=== PATIENT | female | born 1970 | race Caucasian/White ===

== ENCOUNTER 2016-11-13 07:30 | Emergency (ER) | payer OTHER ==
[2016-11-13] MEDS ORDERED: Ibuprofen TAB* 400 MG PO ONE (07:38)
--- NOTE | 2016-11-13 07:47 | UC ---
Upper Extremity HPI - HPI Summary HPI Summary: fell at the gym this am, LAUREN. - History of Current Complaint Stated Complaint: LEFT WRIST INJURY Time Seen by Provider: 11/13/16 07:35 Hx Obtained From: Patient Hx Last Menstrual Period: q 3 months, 04/2015 Onset/Duration: Sudden Onset, Lasting Hours, Still Present Severity Initially: Moderate Severity Currently: Severe Pain Intensity: 8 Pain Scale Used: 0-10 Numeric Location Of Pain: Is Discrete @ - left wrist Aggravating Factor(s): Movement Alleviating Factor(s): Nothing Associated Signs And Symptoms: Positive: Swelling. Negative: Bruising, Numbness /Tingling Related History: Dominant Hand Right - Risk Factors Non-Orthopedic Risk Factor: Negative DVT Risk Factors: Negative Septic Arthritis Risk Factor: Negative - Allergies/Home Medications Allergies/Adverse Reactions: Allergies Allergy/AdvReac Type Severity Reaction Status Date / Time No Known Allergies Allergy Verified 11/13/16 07:54 Home Medications: Home Medications 3 Month Cycle O C 1 tab PO QPM 11/13/16 [History Confirmed 11/13/16] Ibuprofen TAB* [Motrin TAB* 600 MG] 600 mg PO Q24HR PRN 11/13/16 [History Confirmed 11/13/16] PMH/Surg Hx/FS Hx/Imm Hx Previously Healthy: Yes - Surgical History Surgical History: None - Family History Known Family History: Positive: Hypertension - Social History Alcohol Use: Rare Substance Use Type: None Smoking Status (MU): Never Smoked Tobacco - Immunization History Most Recent Influenza Vaccination: no Review of Systems Constitutional: Negative Skin: Negative Eyes: Negative ENT: Negative Respiratory: Negative Cardiovascular: Negative Gastrointestinal: Negative Genitourinary: Negative Motor: Negative Neurovascular: Negative Musculoskeletal: Arthralgia Neurological: Negative Psychological: Negative All Other Systems Reviewed And Are Negative: Yes Physical Exam Triage Information Reviewed: Yes Appearance: Well-Appearing, Well-Nourished, Pain Distress Vital Signs Reviewed: Yes Eyes: Positive: Conjunctiva Clear ENT: Positive: Normal ENT inspection Neck: Positive: Supple Respiratory: Positive: No respiratory distress Cardiovascular: Positive: RRR, No Murmur, Pulses Normal, Brisk Capillary Refill Musculoskeletal: Positive: ROM Limited @ - left wrist, Other: - swelling, deformity left wrist; radial pulse intact, sensation intact. Neurological: Positive: Alert, Muscle Tone Normal Psychological Exam: Normal Skin Exam: Normal Upper Extremity Course/Dx - Differential Dx/Diagnosis Differential Diagnosis/HQI/PQRI: Contusion, Fracture (Closed), Strain, Sprain Provider Diagnoses: impacted intraarticular left wrist fracture - Physician Notification/Consults Discussed Patient Care With: Dr. Lujan, pt needs surgery.0825. Dr. Carrasco, ED accepts pt.0830. Dr. Asher (ortho), accept pt to ED also. 0840 Instructed by Provider To: MD Will See In ED Discharge - Discharge Plan Condition: Stable Disposition: AGAINST MEDICAL ADVICE Discharge Disposition Comment: pt to go to [facility] by private car, sister driving. Referrals: Malka Evans [Physician Desulfurizer Machine] - Zbigniew Asher MD [Medical Doctor] -
--- NOTE | 2016-11-13 08:01 | RAD ---
INDICATION: Traumatic left wrist fracture with deformity COMPARISON: None TECHNIQUE: AP, lateral, and oblique views were obtained. FINDINGS: There is an impacted, angulated, intra-articular fracture of the distal radius with resultant soft tissue swelling and deformity. The fracture apex is directed towards the volar surface. No other fractures are evident.. IMPRESSION: IMPACTED AND ANGULATED INTRA-ARTICULAR FRACTURE OF THE DISTAL RADIUS
[2016-11-13 08:22] VITALS: BP 125/80
== END 2016-11-13 08:50 | disposition left against medical advice (07) ==
LOC: UCCORT 07:30
DX: S52.572A Other intraarticular fracture of lower end of left radius, initial encounter for closed fracture (principal); W19.XXXA Unspecified fall, initial encounter; Y93.89 Activity, other specified; Y92.39 Other specified sports and athletic area as the place of occurrence of the external cause
CPT/HCPCS: 99213; A9270-GY; G0463

== ENCOUNTER → 2016-11-30 10:35 | Day surgery (SDC) | payer OTHER ==
[~2016-11-30 10:35] MED LIST: Buffered Lidocaine 1% SYRIN* 3 ML/SYR SYRINGE INTRADERM ONE; Bupivacaine 0.25% SDV* 30 ML ONE; Bupivacaine 0.5% W/EPI SDV* 30 ML VIAL ONE; Dexamethasone IV* 4 MG/ML 1 ML (4 MG) ONE; Lidocaine 2% PF* 5 ML VIAL ONE; Metoclopramide IV* 5 MG/ML 2 ML VIAL IV PRN; Midazolam* 1 MG/ML 2 ML VIAL (2 MG) ONE; Ondansetron INJ* 2 MG/ML VIAL ONE; Propofol* 10 MG/ML 20 ML BTL IV PUSH ONE; Scopolamine 1.5 mg* PATCH TRANSDERM PRN; ceFAZolin 2 GM PREMIX(*) 2 GM/50 ML BAG IVPB ONE; fentaNYL* 50 MCG/ML 2 ML VIAL (100 MCG VIAL) ONE
[2016-11-30 16:02] VITALS: BP 117/65
--- NOTE | 2016-12-01 14:14 | OP ---
DATE OF OPERATION: 11/30/16 - [facility] DATE OF : 68 SURGEON: Zbigniew Mondragon MD MANAGER DRUG SAFETY: BRETT Quintanilla ANESTHESIOLOGIST: Dr. Herndon. ANESTHESIA: Axillary block plus general. PRE-OP DIAGNOSIS: Left intra-articular distal radius fracture. POST-OP DIAGNOSIS: Left intra-articular distal radius fracture. OPERATIVE PROCEDURE: Open reduction and internal fixation of the left intra- articular distal radius fracture. INDICATIONS: Tanisha is a patient who I saw last week in the office after she had had attempted closed treatment of the distal radius fracture. She had had a closed reduction and a sugar-tong splint applied about a week and a half prior to me seeing her. The alignment was initially very good. When she came back to a different orthopedic surgeon's office, the splint was inadvertently removed and she felt like the bone shifted. A repeat x-ray after she had been re-splinted showed some loss of the radial inclination and now about 10 or 20 degrees of dorsal tilt, though length still at reasonable. Additionally, we had some trouble obtaining the lateral view. It looks like that there is a couple of tries on the lateral view and to me it looks like she is probably a little malrotated. She and I had a nice conversation in the office. She really wanted surgical fixation and correction. She did not like the bow that had been created in the coronal plane with the loss of radial inclination. She came to my office a day after seeing a different orthopedic surgeon to discuss with me and also because she was having tremendous pain in the new splint and wanted it removed and at a minimum another splint placed. ESTIMATED BLOOD LOSS: 5 mL. COMPLICATIONS: None. FINDINGS: There was an intraarticular split coming up into the ulnar facet. There was an additional split more radially. DESCRIPTION OF PROCEDURE: Tanisha was seen in the preoperative holding area and the correct side and site and procedure were identified. We came back to the operating room where Dr. Herndon did the block and then anesthesia was induced. The arm was then prepped and draped in the usual fashion with an excellent chlorhexidine or Betadine pre-prep. A formal time-out was performed. I began by making a longitudinal incision over the distal aspect of the FCR tendon. Dissection was carried down through the subcutaneous tissue and the sheath was incised. The FCR tendon was retracted ulnarly and then the subsheath was divided longitudinally. Dissection was then carried down bluntly and soft tissue was swept off the pronator quadratus retracting the FPL tendon ulnarly together with the median nerve. The pronator quadratus was then released off the radius and then T'ed back distally preserving the last three or so millimeter of volar wrist capsule. The fracture site was identified. There was quite a bit of soft callus that was starting to form. It was indeed at least at this current time very malrotated with the radial aspect of the distal fragment sitting quite volar. The ulnar aspect was reasonably aligned in the sagittal plane. The step-off there was freed up of soft tissue. The bony edges were visualized. I then mobilized the fragments and performed a closed reduction maneuver and my family services assistant placed a 0.062 K-wire from the radial styloid out through the ulnar cortex of the proximal fragment. This provided adequate provisional stabilization. I checked everything fluoroscopically and then I went ahead and brought in a plate and placed it in what I thought was a nice position, I pinned it with two pins distally and then 1 pin more proximally. I again checked the fluoroscopy and was satisfied with the plate position. I therefore used the nominal guide to place the three most ulnar screws. I then used the variable angle cone guide to place the radial screw. She had quite a narrow radius and even the narrow plate took up the majority of the bone volarly. With the four distal screws in place, I had my family services assistant pull the K-wire and we aligned the proximal plate onto the shaft of the bone just the position that we wanted. I had built in a few more degrees of radial deviation into the plate positioning and so we went ahead and did that and clamped the plate proximally with a lobster claw. I checked fluoroscopy. I liked the plate. The most radial screw was a little malpositioned. I went ahead and placed one proximal 2.4 mm screw in the oblong hole. I then switched out my radial styloid screw as the other one shooting up too ulnarly. I liked the length and the position of the new screw much better. I then placed two final proximal 2.4 mm cortical screws. I brought in the C- arm and checked the x-ray images. Everything looked very nice. I checked the full range of motion and there was no grinding, crepitus, or catching of any sort. This included full pronation and supination. At this point, we saved some final fluoroscopic images. We irrigated the wound copiously. The pronator quadratus was repaired with some 3-0 Polysorb suture. The subcutaneous tissue was reapproximated. The skin was closed with 4-0 nylon suture. At this point, the wound was dressed with Xeroform, 4x4s, sterile Webril, and a volar splint was placed. Tourniquet was deflated. Please note that the arm had been exsanguinated and the tourniquet inflated to 250 mmHg prior to making skin incision. After deflating the tourniquet, all the fingers pinked up immediately. She was then awoken up and taken to the recovery room in stable condition. [id number]/[facility] #: [id number] WILMAR
--- NOTE | 2016-12-01 15:44 | RAD ---
INDICATION: LEFT wrist ORIF. COMPARISON: November 23, 2016 TECHNIQUE: 1 minute 19 seconds fluoroscopy. FINDINGS: Spot images document placement of a volar cortical plate and fixation screws across the impacted distal metaphyseal fracture of the radius with significant correction of disproportionate ulnar impaction compared with the November 23, 2016 exam. IMPRESSION: Procedural fluoroscopy. CPT II Codes: 6045F
== END | disposition home or self-care (01) ==
LOC: OREAST 10:35
PROVIDERS: ATTEND Orthopaedic Surgery Hand Surgery
DX: S52.572A Other intraarticular fracture of lower end of left radius, initial encounter for closed fracture (principal); W19.XXXA Unspecified fall, initial encounter; Y93.B9 Activity, other involving muscle strengthening exercises; Y92.9 Unspecified place or not applicable
CPT/HCPCS: 76000; C1713; C1776; J0690; J1100; J2250; J2405; J2704; J3010